=== PATIENT | female | born 1975 | race Caucasian/White ===

== ENCOUNTER 2016-08-28 16:50 | Emergency (ER) | payer OTHER | END 2016-08-28 17:15 | disposition home or self-care (01) | LOC: ER 16:50 | DX: G62.9 Polyneuropathy, unspecified (principal); F31.9 Bipolar disorder, unspecified; F41.9 Anxiety disorder, unspecified; M16.0 Bilateral primary osteoarthritis of hip; E66.9 Obesity, unspecified; F17.200 Nicotine dependence, unspecified, uncomplicated; Z90.710 Acquired absence of both cervix and uterus; Z85.43 Personal history of malignant neoplasm of ovary; Z88.5 Allergy status to narcotic agent; Z79.899 Other long term (current) drug therapy | CPT/HCPCS: J1100 ==